=== PATIENT | male | born 1965 | race Caucasian/White ===

== ENCOUNTER 2018-03-08 10:47 | Emergency (ER) | payer OTHER ==
[~2018-03-08] VITALS: Ht 185.4 cm; Wt 107.8 kg
[2018-03-08] MEDS ORDERED: DILTIAZEM 5 MG/ML, 5ML ONE ×2 (10:58→11:36)
[2018-03-08 11:28] LABS: BASOPHILS # (AUTO) 0.03 x10^3/uL (0-0.1); BASOPHILS % (AUTO) 1 % (0-1); EOSINOPHILS % (AUTO) 8 % (1-7); LYMPHOCYTES # (AUTO) 2.36 x10^3/uL (1-3.4); LYMPHOCYTES % (AUTO) 39 % (22-44); MD NO; MEAN CORPUSCULAR HEMOGLOBIN 33.1 pg (27.5-34.5); MEAN CORPUSCULAR HGB CONC 35.1 g/dL (33.2-36.2); MEAN CORPUSCULAR VOLUME 94.4 fL (81-97); MEAN PLATELET VOLUME 8.7 fL (7.4-10.4); MONOCYTES # (AUTO) 0.42 x10^3/uL (0.2-0.8); MONOCYTES % (AUTO) 7 % (2-9); NEUTROPHILS # (AUTO) 2.83 x10^3/uL (1.8-6.8); NEUTROPHILS % (AUTO) 46 % (42-75); PLATELET COUNT 233 x10^3/uL (130-400); RED BLOOD COUNT 5.22 x10^6/uL (4.38-5.82); RED CELL DISTRIBUTION WIDTH 12.4 % (9.4-14.8)
[2018-03-08] MEDS ORDERED: ESZO2TAB22 PO (11:33)
[2018-03-08 11:40] LABS: ALBUMIN 4.2 g/dL (3.4-5.0); ANION GAP 7 mmol/L (5-15); CHLORIDE 102 mmol/L (98-107)
[2018-03-08 11:41] LABS: INTERNATIONAL NORMALIZED RATIO 0.99 (0.93-1.1); PROTHROMBIN TIME 10.2 Seconds (9.6-11.5)
[2018-03-08] MEDS ORDERED: ASPIRIN 325 MG TABLET EC ONE (11:44)
[2018-03-08 11:46] LABS: CREATININE 1.03 mg/dL (0.7-1.3); FREE T4 (FREE THYROXINE) 0.92 ng/dL (0.76-1.46); TROPONIN I < 0.015 ng/mL (0.000-0.045)
[2018-03-08] MEDS ORDERED: ASPIRIN 325 MG TABLET EC PO ONE (12:00)
[2018-03-08] MEDS ORDERED: DILTIAZEM 5 MG/ML, 5ML IV ONE ×2 (12:00)
[2018-03-08] MEDS ORDERED: SODIUM CHLORIDE FLUSH 10ML SYR IVF ONE (12:00)
[2018-03-08] MEDS ORDERED: FENTANYL PF 100 MCG/2ML ONE (12:13)
[2018-03-08] MEDS ORDERED: ETOMIDATE 20 MG/10 ML ONE (12:13)
[2018-03-08] MEDS ORDERED: ICN FENTANYL 4MCG/ML IV IVPush ONE (12:30)
[2018-03-08] MEDS ORDERED: ETOMIDATE 40 MG/20 ML IVPush ONE (12:30)
[2018-03-08 13:17] VITALS: BP 131/85
== END 2018-03-08 13:52 ==
LOC: ED 12:47
DX: I48.91 Unspecified atrial fibrillation (principal)
CPT/HCPCS: 36415; 71045; 80048; 82040; 84439; 84443; 84484; 85025; 85610; 85730; 92960; 93005; 96374; 96376; 99291

== ENCOUNTER 2018-06-19 06:52 | Emergency (ER) | payer OTHER ==
[~2018-06-19] VITALS: Ht 185.4 cm; Wt 109.0 kg
[~2018-06-19 06:52] MED LIST: ESZO2TAB22 PO
--- NOTE | 2018-06-19 07:05 | NUR ---
PT PRESENTED TO ED D/T HEART PALPITATIONS AND SOB SINCE 0500 THIS AM. PT STATES HAS A HX OF AFIB RVR. PT HAS UNDERGONE CARDIOVERSION IN THE PAST THAT HAS CONVERTED HIM BACK TO SR. PT CURRENTLY AFIB 185. PT DENIES N/V. ERMD AT BEDSIDE EVALUATING PT.
--- NOTE | 2018-06-19 07:18 | NUR ---
RN OBTAINED CONSENT FOR CARDIOVERSION. PIV ACCESS WAS OBTAINED. 18 R AC. BLOOD COLLECTED. CXR PERFORMED.
[2018-06-19] MEDS ORDERED: PROPOFOL 10 MG/ML, 20ML ONE (07:19)
--- NOTE | 2018-06-19 07:21 | NUR ---
REPORT TO DARRIAN DE GUZMAN.
--- NOTE | 2018-06-19 07:29 | NUR ---
BETTY COLMENARES NOTE: MD AREVALO GAVE 80 MG IV PROPOFOL. CARDIOVERSION PREFORMED AT 200 JOULES. NSR IMMEDIATELY. PATIENT AWAKE AT 0736. NO DROP IN O2 SATURATION. PATIENT VSS.
[2018-06-19] MEDS ORDERED: SODIUM CHLORIDE FLUSH 10ML SYR IVF ONE (07:30)
[2018-06-19] MEDS ORDERED: PROPOFOL 10 MG/ML, 20ML IVP ONE (07:30)
[2018-06-19 07:38] LABS: BASOPHILS # (AUTO) 0.02 x10^3/uL (0-0.1); BASOPHILS % (AUTO) 0 % (0-1); EOSINOPHILS # (AUTO) 0.41 x10^3/uL (0-0.4); EOSINOPHILS % (AUTO) 6 % (1-7); LYMPHOCYTES # (AUTO) 2.08 x10^3/uL (1-3.4); LYMPHOCYTES % (AUTO) 32 % (22-44); MD NO; MEAN CORPUSCULAR HEMOGLOBIN 32.6 pg (27.5-34.5); MEAN CORPUSCULAR HGB CONC 34.2 g/dL (33.2-36.2); MEAN CORPUSCULAR VOLUME 95.1 fL (81-97); MEAN PLATELET VOLUME 9.1 fL (7.4-10.4); MONOCYTES % (AUTO) 8 % (2-9); NEUTROPHILS # (AUTO) 3.56 x10^3/uL (1.8-6.8); NEUTROPHILS % (AUTO) 54 % (42-75); PLATELET COUNT 232 x10^3/uL (130-400); RED BLOOD COUNT 5.65 x10^6/uL (4.38-5.82); RED CELL DISTRIBUTION WIDTH 12.4 % (9.4-14.8)
--- NOTE | 2018-06-19 07:38 | NUR ---
REPORT TO RACIEL COLMENARES
--- NOTE | 2018-06-19 07:41 | NUR ---
WASTED PROPOFOL 120 MG WITH RACIEL COLMENARES WITNESS
[2018-06-19 07:43] LABS: ALBUMIN 4.3 g/dL (3.4-5.0); ANION GAP 8 mmol/L (5-15); CALCIUM 9.4 mg/dL (8.5-10.1); CHLORIDE 103 mmol/L (98-107); CREATININE 1.05 mg/dL (0.7-1.3)
--- NOTE | 2018-06-19 07:43 | NUR ---
ASSUMED CARE OF PT POST CARDIOVERSION. PT AWAKE ALERT AND TALKING. NO S/S OF DISTRESS AT THIS TIME. VSS.
--- NOTE | 2018-06-19 07:56 | NUR ---
FAMILY AT BEDSIDE.
--- NOTE | 2018-06-19 08:19 | NUR ---
PT DISCHARGED HOME IN A STABLE CONDITION. PIV WAS REMOVED WITH TIP INTACT. DC INSTRUCTIONS WERE DISCUSSED WITH PT. PT VERBALIZED UNDERSTANDING. NO FURTHER QUESTIONS OR CONCERNS WERE EXPRESSED AT THAT TIME. PT AMBULATED WITH RN AND FAMILY TO DC DESK. STEADY GAIT.
[2018-06-19 08:20] VITALS: BP 123/92
== END 2018-06-19 08:22 | disposition home or self-care (01) ==
LOC: ED 08:16
DX: I48.0 Paroxysmal atrial fibrillation (principal)
CPT/HCPCS: 36415; 71045; 80048; 82040; 85025; 92960; 93005